=== PATIENT | male | born 1955 | race African-American/Black ===

== ENCOUNTER 2022-06-09 05:24 | Emergency (ER) | payer MEDICARE ==
[~2022-06-09] VITALS: Ht 177.8 cm; Wt 73.0 kg
[2022-06-09] MEDS ORDERED: SODIUM CHLORIDE 0.9% 1,000 ML IV ONE ×2 (05:45→06:45)
[2022-06-09 06:18] LABS: CHLORIDE 115 mEq/L (98-107)
[2022-06-09] MEDS ORDERED: CEFTRIAXONE 1 G PREMIX 50 ML IV ONE (06:45)
[2022-06-09] MEDS ORDERED: VANCOMYCIN 1G PREMIX 200 ML IV SCH (06:45)
[2022-06-09] MEDS ORDERED: NOREPINEPHRINE 8 MG in DEXT 5% WATER 242 ML IV PRN (07:45)
[2022-06-09] MEDS ORDERED: LIDOCAINE HCL 1% 10 MG/ML 10ML VIAL ONE (08:00)
[2022-06-09] MEDS ORDERED: NOREPINEPHRINE 8MG/250ML PMX 242 ML IV PRN (08:34)
[2022-06-09] MEDS ORDERED: NOREPINEPHRINE 8MG/250ML PMX 250 ML IV PRN (08:35)
[2022-06-09] MEDS ORDERED: NOREPINEPHRINE 8MG/250ML PMX 250 ML IV ONE (08:35)
[2022-06-09 08:56] VITALS: BP 43/25
[2022-06-09] MEDS ORDERED: PHENYLEPHRINE 50 MG in DEXT 5% WATER 245 ML IV PRN ×2 (09:00→09:15)
[2022-06-09] MEDS ORDERED: AMIODARONE HCL 50MG/ML 3ML VIAL IV ONE (09:05)
[2022-06-09] MEDS ORDERED: DEXTROSE 50% WATER 50ML SYRINGE IV ONE (09:05)
[2022-06-09] MEDS ORDERED: EPINEPHRINE 0.1MG/ML (1:10,000) 10ML SYR ONE ×3 (09:05→10:17)
[2022-06-09] MEDS ORDERED: SODIUM BICARBONATE 8.4% 1 MEQ/ML 50ML SYR IV ONE (09:05)
[2022-06-09] MEDS ORDERED: ATROPINE SULFATE 1MG/10ML SYR ONE (09:05)
[2022-06-09] MEDS ORDERED: LIDOCAINE HCL 2% 5ML SYRINGE IV ONE (09:05)
[2022-06-09] MEDS ORDERED: CALCIUM CHLORIDE 1GM/10ML SYR IV ONE (09:05)
[2022-06-09] MEDS ORDERED: ASPIRIN 325MG EC TABLET PO ONE (09:45)
[2022-06-09] MEDS ORDERED: HEPARIN BOLUS PRN aPTT <30 IV (10:00)
[2022-06-09] MEDS ORDERED: HEPARIN BOLUS PRN aPTT 30-44 IV (10:00)
[2022-06-09 10:05] LABS: INR 1.7; PARTIAL THROMBOPLASTIN TIME 29.1 sec (23.4-31.0); PROTHROMBIN TIME 17.7 sec (9.6-11.0)
[2022-06-09] MEDS ORDERED: HEPARIN 25,000 UNITS PREMIX 250 ML IV SCH (10:15)
[2022-06-09] MEDS ORDERED: HEPARIN 60 UNITS/KG BOLUS IV SCH (10:30)
== END 2022-06-09 10:37 ==
LOC: ER 05:24
DX: I46.9 Cardiac arrest, cause unspecified (principal); I95.9 Hypotension, unspecified; R00.0 Tachycardia, unspecified; E87.2 Acidosis; K85.90 Acute pancreatitis without necrosis or infection, unspecified; J44.9 Chronic obstructive pulmonary disease, unspecified; Z66 Do not resuscitate; Z86.73 Personal history of transient ischemic attack (TIA), and cerebral infarction without residual deficits
CPT/HCPCS: 31500; 36415; 36556; 70450; 71045; 74176; 80053; 82962; 83605; 83690; 83880; 84484; 85610; 85730; 87040; 94002; 96361; 96365; 96368; 99291; J0282; J0461; J0696; J2370; J3370; J3490; J7030; J7060; J1644